=== PATIENT | male | born 1950 | race Caucasian/White ===

== ENCOUNTER 2016-09-04 08:05 | Observation (INO) ==
--- NOTE | 2016-09-04 08:35 | EKG Report ---
Stationary ECG Study [facility] Test Date: 09/04/2016 8:36:45 AM Pat Name: AMADA BROCK Department: Room: Gender: M Diamond Sander: CORAL : 1950 Requested by: Odell Brunner Order Number: [id number] Regina MD: ENRIQUE MONTEZ Intervals [place]is Rate: 60 P: 59 NE: 151 QRS: 26 QRSD: 88 T: 60 QT: 392 QTc: 393 Interpretive Statements SINUS RHYTHM LOW QRS VOLTAGE IN PRECORDIAL LEADS Electronically Signed On 09-06-16 14:10:16 CDT by ENRIQUE MONTEZ [email or web address]
[2016-09-04] MEDS: SODIUM CHLORIDE 0.9% 1,000 ML IV SCH (08:39)
[2016-09-04 08:46] LABS: Basophils # 0.1 10*3/uL (0.0-0.2); Basophils % 0.4 % (0.0-0.8); Eosinophils # 0.3 10*3/uL (0.0-0.87); Eosinophils % 2.3 % (0.00-10.9); Hematocrit 37.4 VOL% (42.0-52.0); Hemoglobin 13.1 GM/DL (14.0-18.0); Immature Granulocytes % 0.2 %; Immature Granulocytes Absolute 0.03 #; Lymphocytes # 7.3 10*3/uL (1.4-4.0); Lymphocytes % 59.1 % (21.2-54.2); Mean Corpuscular Hemoglobin 32 PG (27-34); Mean Corpuscular Volume 91.4 FL (87-102); Mean Platelet Volume 9.8 FL (9.6-12.0); Monocytes # 1.3 10*3/uL (0.11-0.8); Monocytes % 10.6 % (1.7-12.7); Neutrophils # 3.4 10*3/uL (1.4-7.4); Neutrophils % 27.4 % (38.7-73.9); Platelet Count 132 T/CUMM (130-400); Red Blood Count 4.09 MC/CUMM (3.8-5.5); Red Cell Distribution Width 13.1 % (9.3-17.3); White Blood Count 12.3 T/CUMM (4-12)
[2016-09-04 08:56] LABS: INR 1.1; PT Patient Result 11.2 SECS; Partial Thromboplastin Time 31.3 SECS (0-40)
[2016-09-04 09:11] LABS: Eosinophils 1 % (0-10); Hypochromasia 1+; Lymphocytes 56 % (20-55); Ovalocytes Slight; Platelet Estimate Normal; Segmented Neutrophils 38 % (50-85); Total Cells Counted 100
[2016-09-04] MEDS ORDERED: ceFAZolin 1,000 MG VIAL ONE (09:13)
[2016-09-04] MEDS ORDERED: SODIUM CHLORIDE 0.9% 100 ML IV ONE (09:14)
--- NOTE | 2016-09-04 11:17 | History and Physical Update ---
History and Physical Update - Physical Exam Mental Status: alert and oriented Heart: regular rate and rhythm Lung: clear to auscultation Abdomen: within normal limits Vitals: within normal limits
--- NOTE | 2016-09-04 11:20 | Operative Note ---
Date of procedure: 09/04/16 Pre-op diagnosis: Dysphagia and malnutrition Procedure: EGD with biopsy and percutaneous endoscopic gastrostomy tube placement and esophageal dilatation. 66-year-old gentleman with recurrent nasopharyngeal carcinoma with difficulty maintaining adequate nutrition and dysphagia now for EGD for possible PEG tube placement and dilatation. Informed consent was obtained for patient He was sedated with MAC anesthesia per anesthesia protocol. Patient was placed in left lateral decubitus position the Olympus flexible video upper endoscope was inserted oral cavity under direct vision the esophagus intubated. No posterior pharyngeal abnormality was observed. Findings: Esophagus-normal esophageal mucosa throughout no significant stricture or mass lesion was identified. Stomach-normal insufflation there is acute antral erosive gastritis biopsies were taken for possible H. pylori. Remaining stomach is normal to direct retroflexed views of the body fundus and cardia the stomach. Pylorus-normal Duodenum-normal for the bulb and duodenum to the third portion of the duodenum. Scope was drawn back into the stomach and appropriate on the anterior abdominal wall was transilluminated after the patient was rotated to the supine position. Area was prepped and draped in sterile fashion Nestabs 1/2 cc lidocaine. Finder needle was endoscopically visualized. This was removed a small scalpel incision was made in the skin through which an 18-gauge Angiocath was inserted stomach endoscopically verified. Guidewire was passed grasped with polypectomy snare brought out via the mouth and using standard pull traction technique a 20 [place] Gagan Ponsky style PEG tube was pulled in position without difficulty. Subsequently a 54 E[place]an bougie was passed without resistance or bleeding. The patient was discharged recovery in good condition. Postop diagnosis: 1. Dysphagia malnutrition likely secondary to esophageal dysmotility related to his recurrent nasopharyngeal tumor. Will admit overnight for observation following his PEG tube placement. Will assess effectiveness of dilatation is can be repeated as needed 2. Erosive ftivlwvjk-hawhyc-wr biopsies positive for H. pylori will treat. Initiate PPI treatment. Avoid nonsteroidals. Anesthesia: MAC Surgeon / Physician: Odell Mondragon Specimens: other (Erosive gastritis) Condition: stable Disposition: post procedure unit Results - Labs CBC & BMP: 09/04/16 08:35 Discharge Plan - Discharge Medications No Action Temazepam [Restoril] 30 mg PO BEDTIME Ondansetron Tab [Zofran Tab] 4 mg PO Q8HR PRN PRN Reason: Nausea Amitriptyline [Elavil] 50 mg PO BEDTIME Tamsulosin [Flomax] 0.4 mg PO DAILY Carisoprodol [Soma] 350 mg PO BID Hydrocodone/Acetaminophen [Lorcet Hd 10-325 mg Tablet] 1 each PO Q3-4H PRN PRN Reason: Pain - Follow Up or Referral - Forms/Instructions
[2016-09-04] MEDS ORDERED: ONDANSETRON 4 MG/2 ML VIAL IV PRN (11:21)
[2016-09-04] MEDS ORDERED: MAGNESIUM HYDROXIDE SUSP 30 ML UDCUP PO PRN (11:21)
--- NOTE | 2016-09-04 11:25 | Anesthesia Post-Op ---
Anesthesia Post OP - Post Ansesthetic Evaluation Patient seen in post op: Yes Resp: within normal limits CV: within normal limits Mental: within normal limits Temp: within normal limits Tavc-Ba-Udqvciumw: within normal limits Nausea and Vomiting: within normal limits Pain: within normal limits
--- NOTE | 2016-09-04 11:28 | Gastrointestinal H&P ---
Assessment and Plan (1) Malnutrition Status: Acute Assessment and plan: Malnutrition secondary to esophageal dysmotility from recurrent nasopharyngeal carcinoma. Now for admission following PEG tube placement for institution of PEG feedings monitoring for post PEG tube complications. Current Visit: Yes (2) Erosive gastritis Status: Acute Assessment and plan: Erosive gastritis will start PPI treatment. He complains of good bit of nausea which is likely secondary to this biopsy was taken for the possibility of H pylori no history of nonsteroidals is reported. Current Visit: Yes (3) Nasopharyngeal carcinoma Status: Acute Assessment and plan: Keep out placement plan plans for chemotherapy and possible radiation Current Visit: Yes History of Present Illness Chief complaint: Dysphagia and malnutrition History of present illness: Mr. Mckeon is a 66 year old male History of nasopharyngeal carcinoma with recurrence complicated by tongue weakness and hoarseness resulting in inability to transfer oropharyngeal contents into the esophagus resulting in dysphagia and impending malnutrition. He has undergone EGD with PEG tube placement today and is being monitored overnight for complications relative to PEG tube placement and institution of PEG tube training and feedings. Plans for follow-up chemotherapy are scheduled and the possibility of recurrent radiation is being considered. Home Medications Medication Instructions Recorded Confirmed Type Carisoprodol [Soma] 350 mg PO BID 09/03/16 09/04/16 History Tamsulosin [Flomax] 0.4 mg PO DAILY 09/03/16 09/03/16 History Temazepam [Restoril] 30 mg PO BEDTIME 09/03/16 09/03/16 History Amitriptyline [Elavil] 50 mg PO BEDTIME 09/04/16 09/04/16 History Hydrocodone/Acetaminophen [Lorcet 1 each PO Q3-4H PRN 09/04/16 09/04/16 History Hd 10-325 mg Tablet] Ondansetron Tab [Zofran Tab] 4 mg PO Q8HR PRN 09/04/16 09/04/16 History Allergies Allergy/AdvReac Type Severity Reaction Status Date / Time Penicillins Allergy EYE Verified 09/04/16 10:42 SWELLING Medical,Surgical,& Family Hx - Medical History Psychological: History of: Depression Neurology: No history of: Seizures HEENT: History of: HEENT Problems (Malignant neoplasm nasopharynx) Gastrointestinal: History of: Polyps Musculoskeletal: History of: Back/Neck Problems (Chronic back pain) Hematology: History of: Hematologic Cancer (Chronic lymphocytic leukemia) Reproductive: No histroy: Reproductive Cancer Other: History of: Cancer (Chronic lymphocytic leukemia; malignant neoplasm nasopharynx) - Surgical History Cardiac Surgeries: Sugical HX of: Cardiac Catheterization (2010 -NEGATIVE - Dr. Rowe) Patient Denies: Carotid Endarterectomy HEENT Surgeries: Surgical HX of: Eye Surgery (BILATERAL cataract removal) Patient denies: Carotid Endarterectomy, Tonsilectomy & Adenoidectomy Abdominal Surgeries: Surgical HX of: Abdominal Surgery, Cholecystectomy, Colonoscopy Patient denies: Appendectomy, Gastric Bypass Surgery, EGD, Hernia Repair Reproductive Surgeries: Patient denies;: Genitourinary Surgery, Vasectomy Orthopedic Surgeries: Surgical HX of;: Orthopedic Surgery (RIGHT knee scope; Back fusion) - Family History Family History: Reports;: Family Cancer (Sister (lung)), Family Heart Disease ( Mother), Family Hypertension (Mother, Son) Denies;: Family Anesthesia Reaction, Family Diabetes, Family Hematology, Family Psychiatric Problems, Family Stroke - Social History Smoking Status: Former smoker Frequency of Alcohol Use: None Type of Drug Use: None - Constitutional Constitutional: Present: anorexia, fatigue. Absent: chills, fever(s) - EENT Eyes: Absent: diplopia, loss of vision Ears: Absent: decreased hearing, tinnitus Nose, mouth and throat: Present: dysphagia. Absent: epistaxis, headache(s) - Cardiovascular Cardiovascular: Absent: chest pain at rest, chest pain with activity, edema - Respiratory Respiratory: Absent: dyspnea, hemoptysis, dyspnea on exertion - Gastrointestinal Gastrointestinal: Present: nausea. Absent: abdominal pain, bloating, vomiting, jaundice - Genitourinary Genitourinary: Absent: difficulty urinating, hematuria - Musculoskeletal Musculoskeletal: Absent: back pain - Neurological Neurological: Present: abnormal speech. Absent: behavioral changes, confusion, convulsions - Psychiatric Psychiatric: Present: depression. Absent: confusion - Endocrine Endocrine: Present: fatigue. Absent: polydipsia, polyphagia - Hematologic/Lymphatic Hematologic/Lymphatic: Absent: easy bleeding, easy bruising, lymphadenopathy Exam - Constitutional Vitals: Period Temp Pulse Resp BP Sys/Costa Pulse Ox Last 24 Hr 97.1 F 58 16 119/67 97 General appearance: no acute distress, under weight - Head Head exam: Present: normal inspection, normocephalic, atraumatic - Eye Eye exam: Present: EOMI. Absent: conjunctival injection, scleral icterus Pupils: Present: EVE. Absent: dilated - ENT ENT exam: Present: normal oropharynx - Neck Neck exam: Absent: lymphadenopathy, thyromegaly - Respiratory Respiratory exam: Present: clear to auscultation bilaterally. Absent: accessory muscle use, rales - Cardiovascular Cardiovascular exam: Present: regular rate and rhythm. Absent: systolic murmur - GI/Abdominal GI/Abdominal exam: Present: normal bowel sounds, soft. Absent: ascites, organomegaly, tenderness, rebound - Extremities Exam Extremities exam: Present: normal inspection. Absent: edema - Neurological Exam Neurological exam: Present: alert, oriented X3 - Psychiatric Psychiatric exam: Present: normal affect, flat affect - Skin Skin exam: Present: warm, dry Results - Labs CBC & BMP: 09/04/16 08:35 Quality Measures - VTE Contraindication to Pharmacological VTE Prophylaxis: High Risk of Bleeding
[2016-09-04] MEDS ORDERED: PANTOPRAZOLE 40 MG TABLET PO SCH (11:30)
[2016-09-04] MEDS: DEXTROSE 5% NACL 0.45% 1,000 ML IV SCH (14:09)
[2016-09-04] MEDS ORDERED: LIDOCAINE 100 MG/5 ML SYRINGE ONE (16:44)
[2016-09-04] MEDS ORDERED: PROPOFOL 200 MG/20 ML VIAL IV ONE (16:44)
--- NOTE | 2016-09-04 17:02 | General Surgery Consult Note ---
Assessment and Plan - Time spent with patient Time spent with patient: Less than 30 minutes (1) Nasopharyngeal carcinoma Status: Acute Assessment and plan: Impression: 1. Recurrent nasopharyngeal cancer needing venous access for chemotherapy 2. Mild to moderate malnutrition. Plan: Placement of Mediport left cephalic or subclavian vein Current Visit: Yes History of Present Illness Chief complaint: Nasopharyngeal cancer needing venous access for chemotherapy History of present illness: Mr. Mckeon is a 66 year old male white with nasopharyngeal cancer who has had a recurrence and needs additional chemotherapy. He has had a Mediport placed on the right so I think will Plan to put this on the left and or the hopes of being able get in the cephalic vein and avoid a subclavian stick and its complications. I have discussed the surgery and procedure with the patient and family they understand the risks and complications and agreeable to go ahead at this time. Home Medications Medication Instructions Recorded Confirmed Type Carisoprodol [Soma] 350 mg PO BID 09/03/16 09/04/16 History Tamsulosin [Flomax] 0.4 mg PO DAILY 09/03/16 09/04/16 History Temazepam [Restoril] 30 mg PO BEDTIME 09/03/16 09/04/16 History Amitriptyline [Elavil] 50 mg PO BEDTIME 09/04/16 09/04/16 History Hydrocodone/Acetaminophen [Lorcet 1 each PO Q3-4H PRN 09/04/16 09/04/16 History Hd 10-325 mg Tablet] Ondansetron Tab [Zofran Tab] 4 mg PO Q8HR PRN 09/04/16 09/04/16 History Allergies Allergy/AdvReac Type Severity Reaction Status Date / Time Penicillins Allergy EYE Verified 09/04/16 10:42 SWELLING Medical,Surgical,& Family Hx - Medical History Psychological: History of: Depression Neurology: No history of: Seizures HEENT: History of: HEENT Problems (Malignant neoplasm nasopharynx) Gastrointestinal: History of: Polyps Musculoskeletal: History of: Back/Neck Problems (Chronic back pain) Hematology: History of: Hematologic Cancer (Chronic lymphocytic leukemia) Reproductive: No histroy: Reproductive Cancer Other: History of: Cancer (Chronic lymphocytic leukemia; malignant neoplasm nasopharynx) - Surgical History Cardiac Surgeries: Sugical HX of: Cardiac Catheterization (2010 -NEGATIVE - Dr. Rowe) Patient Denies: Carotid Endarterectomy HEENT Surgeries: Surgical HX of: Eye Surgery (BILATERAL cataract removal) Patient denies: Carotid Endarterectomy, Tonsilectomy & Adenoidectomy Abdominal Surgeries: Surgical HX of: Abdominal Surgery, Cholecystectomy, Colonoscopy Patient denies: Appendectomy, Gastric Bypass Surgery, EGD, Hernia Repair Reproductive Surgeries: Patient denies;: Genitourinary Surgery, Vasectomy Orthopedic Surgeries: Surgical HX of;: Orthopedic Surgery (RIGHT knee scope; Back fusion) - Family History Family History: Reports;: Family Cancer (Sister (lung)), Family Heart Disease ( Mother), Family Hypertension (Mother, Son) Denies;: Family Anesthesia Reaction, Family Diabetes, Family Hematology, Family Psychiatric Problems, Family Stroke - Social History Smoking Status: Former smoker Frequency of Alcohol Use: None Type of Drug Use: None 12 point system: reviewed and no additional remarkable complaints except as stated Exam - Constitutional Vitals: Period Temp Pulse Resp BP Sys/Costa Pulse Ox Last 24 Hr 97.1 F-98.5 F 53-65 16-20 103-152/56-73 94-100 General appearance: mild distress - Head Head exam: Present: normal inspection - ENT ENT exam: Present: normal exam - Neck Neck exam: Present: normal inspection - Respiratory Respiratory exam: Present: rales, other (Chest wall both sides is clean with no sign of any lesions or cyst tissue breakdown) - Cardiovascular Cardiovascular exam: Present: RRR - GI/Abdominal GI/Abdominal exam: Present: hypoactive bowel sounds, soft - Extremities Exam Extremities exam: Present: normal inspection - Back Exam Back exam: Present: normal inspection - Neurological Exam Neurological exam: Present: alert, oriented X3, CN II-XII intact - Skin Skin exam: Present: normal color, warm, dry Quality Measures - VTE Contraindication to Pharmacological VTE Prophylaxis: High Risk of Bleeding Results - Labs CBC & BMP: 09/04/16 08:35 Lab Results: I have reviewed the past 24 hour labs
[2016-09-05] MEDS: DEXTROSE 5% NACL 0.45% 1,000 ML IV SCH (04:41)
[2016-09-05] MEDS ORDERED: CLINDAMYCIN INJ 900 MG in PREMIX 1 EACH IV ONE (06:00)
[2016-09-05 06:09] LABS: INR 1.1; PT Patient Result 11.8 SECS; Partial Thromboplastin Time 32.8 SECS (0-40)
[2016-09-05 06:13] LABS: Calcium 7.7 MG/DL (8.5-10.1); Osmolality,Calculated 276.4 MOS/KG (273-304); Phosphorous 3.6 MG/DL (2.5-4.9); Potassium 3.6 MMOL/L (3.5-5.1); Prealbumin 22.8 MG/DL (20-40)
--- NOTE | 2016-09-05 09:18 | Discharge Summary ---
<Nan Mays - Last Filed: 09/05/16 10:15> Hospital Course - Hospital Course Hospital Course: Mr. Mckeon was admitted on yesterday from the GI Lab following PEG tube placement. He has a history of nasopharyngeal carcinoma which has recurred and is complicated his ability to swallow. He elected to proceed with PEG tube placement on yesterday and did well without complication. He has no signs of bleeding, redness, or drainage at the site and abdominal binder is intact. Dietary has consulted with patient and made recommendations regarding tube feedings. He has minimal postprocedure pain today. Dr. Gomez has also consulted with him and is going to proceed with MediPort placement today prior to discharge. Patient is to began chemotherapy in the near future with also the possibility of radiation. Discussed PEG tube care with patient and his who is at bedside. He is to have PEG tube feedings initiated today after his Mediport placement and instruction to be given by nursing staff prior to discharge. Patient and are also considering short-term home health upon discharge. - Time spent with patient Time with patient DS: Greater than 30 minutes Diagnosis - Discharge Diagnosis (1) Malnutrition Status: Acute (2) Erosive gastritis Status: Acute (3) Nasopharyngeal carcinoma Status: Acute Discharge Plan - Discharge Data Disposition: Disch To Home/Self Care Condition at Discharge: Stable Discharge Diet: advance to your usual diet, other (Tube feeding diet) Activity: resume usual activities as tolerated Hygiene: no restrictions Weight Bearing at Discharge: full weight bearing Driving: no restrictions Contact your physician if you experience:: fever over 101, Nausea/Vomiting, pain uncontrolled by pain medications - Discharge Medications No Action Temazepam [Restoril] 30 mg PO BEDTIME Ondansetron Tab [Zofran Tab] 4 mg PO Q8HR PRN PRN Reason: Nausea Amitriptyline [Elavil] 50 mg PO BEDTIME Tamsulosin [Flomax] 0.4 mg PO DAILY Carisoprodol [Soma] 350 mg PO BID Hydrocodone/Acetaminophen [Lorcet Hd 10-325 mg Tablet] 1 each PO Q3-4H PRN PRN Reason: Pain - Follow Up or Referral - Forms/Instructions Exam - Constitutional Vitals: Period Temp Pulse Resp BP Sys/Costa Pulse Ox Last 24 Hr 97.3 F-99.1 F 53-67 16-20 102-152/51-82 94-100 General appearance: normal weight, no acute distress - Head Head exam: Present: normal inspection, normocephalic - Eye Eye exam: Present: other (Lids and conjunctivae are unremarkable). Absent: scleral icterus - ENT ENT exam: Present: normal exam, normal oropharynx - Neck Neck exam: Present: normal inspection - Respiratory Respiratory exam: Present: clear to auscultation bilaterally. Absent: rales, rhonchi, wheezes - Cardiovascular Cardiovascular exam: Present: regular rate and rhythm. Absent: diastolic murmur , JVD, systolic murmur - GI/Abdominal GI/Abdominal exam: Present: normal bowel sounds, soft. Absent: ascites, distended, mass, organomegaly, tenderness - Extremities Exam Extremities exam: Present: normal inspection, full ROM - Back Exam Back exam: Present: normal inspection - Neurological Exam Neurological exam: Present: alert, oriented X3 - Psychiatric Psychiatric exam: Present: normal affect, normal mood - Skin Skin exam: Present: normal color, warm, dry Discharge Results Procedures and tests throughout hospitalization: Pending Orders 09/05/16 IR fluoro guide cv cath Routine Labs on day of discharge: Labs from last 24 hours 09/05/16 09/05/16 05:22 05:22 INR 1.1 PT Patient/Control Mix 11.8 Circ Anticoag PTT 32.8 Sodium 140 Potassium 3.6 Chloride 104 Carbon Dioxide 32 Anion Gap 7.6 BUN 6 L Creatinine 0.90 GFR Calculation 97 BUN/Creatinine Ratio 6.00 Glucose 90 Calculated Osmolality 276.4 Calcium 7.7 L Phosphorus 3.6 Magnesium 2.0 Prealbumin 22.8 DS: Provider Date of admission: 09/04/16 11:21 Primary care physician: Jarrett Murillo, Attending physician on admission: Odell Mondragon MD Consults: 09/04/16 11:24 Consult to Dietitian [CONS] Routine Reason for Dietitian: TF-Initiate/Manage Consult Comment: Tube feeding recommendations 09/04/16 14:31 Consult to Physician [CONS] Routine Comment: mediport placement Consulting Provider: Laz Gomez Discharging clinician: Juan Manuel Schaefer Expected date of discharge: 09/05/16 <Odell Mondragon - Last Filed: 09/05/16 10:30> Diagnosis - Discharge Diagnosis (1) Malnutrition Status: Acute (2) Erosive gastritis Status: Acute (3) Nasopharyngeal carcinoma Status: Acute
[2016-09-05] MEDS: SODIUM CHLORIDE 0.9% 1,000 ML IV SCH ×2 (09:31→14:51)
[2016-09-05] MEDS ORDERED: DIAZEPAM 5 MG TABLET PO ONE (09:39)
[2016-09-05] MEDS ORDERED: ceFAZolin 1,000 MG VIAL ONE (11:24)
[2016-09-05] MEDS ORDERED: HEPARIN 5,000 UNIT/1 ML VIAL ONE (11:24)
[2016-09-05] MEDS ORDERED: BUPIVACAINE 0.25% /EPI 10 ML VIAL ONE (11:24)
--- NOTE | 2016-09-05 11:38 | Pathology Report from [facility] ---
[facility] ACCESSION # : [id number] PATIENT NAME : Amada Brock ORDERING DR : BEVERLEY FAIR MD CLINICAL HX: Nasal pharyngeal disease POST-OP DX: Gastritis SPECIMEN INFO: Gastric biopsy GROSS DESCRIPTION: The specimen is received in formalin labeled with the patients name and consists of two pieces of pink-white tissue measuring in aggregate 0.6 x 0.2 cm. Submitted in one cassette. DIAGNOSIS FOR AMADA BROCK: GASTRIC BIOPSY: Chronic superficial gastritis. H. pylori not seen on H&E or special stain with appropriate control. COLLECTED DATE: 09/04/2016 [facility] REPORT DATE: 09/05/2016 ELECTRONICALLY SIGNED BY: Lopez Bingham M.D. 09/05/2016 - 9:44:34 [facility]
[2016-09-05] MEDS ORDERED: PROPOFOL 200 MG/20 ML VIAL IV ONE (12:35)
[2016-09-05] MEDS ORDERED: LIDOCAINE 1% 5 ML VIAL ONE (12:35)
[2016-09-05] MEDS ORDERED: PHENYLEPHRINE 1 MG/10 ML SYRINGE IV ONE (12:35)
[2016-09-05] MEDS ORDERED: ONDANSETRON 4 MG/2 ML VIAL ONE (12:35)
[2016-09-05] MEDS ORDERED: CLINDAMYCIN 300 MG/2 ML VIAL ONE (12:57)
[2016-09-05] MEDS ORDERED: CLINDAMYCIN 600 MG/4 ML VIAL ONE (12:57)
[2016-09-05] MEDS ORDERED: TISSUE ADHESIVE 1 EACH APPLICATOR TOP ONE (13:17)
[2016-09-05] MEDS ORDERED: HYDROmorphone 2 MG/1 ML VIAL IV PRN (13:38)
[2016-09-05] MEDS ORDERED: ACETAMINOPHEN 325 MG TABLET PO PRN (13:38)
--- NOTE | 2016-09-05 13:52 | Operative Note ---
Date of procedure: 09/05/16 Pre-op diagnosis: Nasopharyngeal cancer needs Mediport Post-op diagnosis: same Procedure: Operative note: Preoperative diagnosis: Nasopharyngeal carcinoma needs Mediport for chemotherapy Postoperative diagnosis: Same Procedure: Insertion of PowerPort left cephalic vein. Surgeon Dr. Gomez Transfer Iron Operator Padmini Price, [facility] Anesthesia is managed anesthetic care with local Brief history: 66-year-old white male with a recurrent nasopharyngeal cancer who has a gastrostomy tube in place and needs venous access for chemotherapy now. He had had one several years ago and the right side so would like to go to the left see if we get one in there. Procedure With patient in supine position prepped and draped in a sterile fashion timeout and antibiotics completed approaches area of the left upper chest left infraclavicular area at the deltopectoral groove region of the left upper chest and shoulder. Infiltrated with a local anesthetic in here and where we then replaced the pocket. I then took a knife made incision through the skin subtenons tissue and then used electrocautery to dissect down to the pectoralis major muscle. Had to dissected superior to the muscle to get into the deltopectoral groove and with careful dissection identified a very large vein that was able to isolate approximately with a 2-0 Vicryl tie. The distal part was a little more difficult to isolate because of several branches in this area but I finally got a 2-0 Vicryl tie on the distal part of the vein and put clips on the branches. Once that was done we had him in Trendelenburg and I made a venotomy incision. I then inserted the catheter into the vein and it flowed easily into the superior vena cava right atrial area. We use a C arm to confirm position and location and then I tied down that distal Vicryl suture to secure it in there. We then aspirated and irrigated through the catheter and it aspirated and irrigated easily. With that looking good they are placed another time about the catheter in the vein to secure it and then put clips on the opening of the veins to keep it close down. We went that was done then I began to create a pocket inferior to that on top of the pectoralis major muscle using sharp and blunt dissection until we had a good pocket created. Once I had that completed then I was able to cut off the excess of the catheter and put it onto the reservoir and put the locking device in position. I then aspirated and irrigated through the reservoir and it aspirated and irrigated easily. I then sutured the reservoir into the pocket with distally on either side keep it from rotating. 2-0 Vicryl sutures I did take another suture on to the catheter underneath the muscle layer just because it looked like a little bit attention at the vein site I would make sure he did not pool layer. Once we had that we check it again with C arm which may look good we then washed out the pocket with a Cleocin antibiotic solution. We closed subtenons tissue with a running 30 Vicryl Suture Never Close the skin running 4-0 Monocryl Dermabond was applied along with a light dressing patient taken recovery room. Estimated blood loss 10 cc Sponge counts correct 2 Drains none Complications none Condition stable satisfactory Anesthesia: MAC, local (0.25% Marcaine with epinephrine mixed [id number] 1% Xylocaine plain) Surgeon / Physician: Laz Gomez Transfer Iron Operator: Padmini Price Estimated blood loss: other (10 cc) Specimens: none sent Condition: stable Disposition: floor Results - Labs CBC & BMP: 09/04/16 08:35 09/05/16 05:22 Discharge Plan - Discharge Data Disposition: Disch To Home/Self Care - Discharge Medications No Action Temazepam [Restoril] 30 mg PO BEDTIME Ondansetron Tab [Zofran Tab] 4 mg PO Q8HR PRN PRN Reason: Nausea Amitriptyline [Elavil] 50 mg PO BEDTIME Tamsulosin [Flomax] 0.4 mg PO DAILY Carisoprodol [Soma] 350 mg PO BID Hydrocodone/Acetaminophen [Lorcet Hd 10-325 mg Tablet] 1 each PO Q3-4H PRN PRN Reason: Pain - Follow Up or Referral - Forms/Instructions
--- NOTE | 2016-09-05 13:59 | Anesthesia Post-Op ---
Anesthesia Post OP - Post Ansesthetic Evaluation Patient seen in post op: Yes Resp: within normal limits CV: within normal limits Mental: within normal limits Temp: within normal limits Ddxo-Xi-Ykwbrbmne: within normal limits Nausea and Vomiting: within normal limits Pain: within normal limits
[2016-09-05] MEDS ORDERED: fentaNYL 100 MCG/2 ML VIAL ONE (14:03)
[2016-09-05] MEDS ORDERED: MIDAZOLAM 2 MG/2 ML VIAL ONE ×2 (14:03→14:04)
--- NOTE | 2016-09-05 14:25 | XRay Report ---
History: Mediport catheter placement Date: 09/05/2016 Study: Chest x-ray AP portable Comparison exam: September 26, 2013 A left upper extremity Mediport-type catheter is well-positioned with its tip over the atriocaval junction region. There is no pneumothorax. There is minor platelike subsegmental atelectasis in the left lung base. There is no sol pneumonia or gross pleural effusion. The cardiac silhouette is upper normal. There is no mediastinal mass. The pulmonary vasculature is not engorged. The osseous structures are unchanged. Impression: No evidence of a pneumothorax following Mediport catheter placement. The Mediport catheter tip appears well-positioned. PROCEDURE INTERPRETED AT [facility] DEPARTMENT OF RADIOLOGY Final Report Signed by: Dr. Catarina Santos
[2016-09-05 18:47] VITALS: BP 162/86
[2016-09-05] MEDS ORDERED: CLINDAMYCIN INJ 900 MG in PREMIX 1 EACH IV SCH (20:00)
== END 2016-09-05 17:35 | disposition home or self-care (01) ==
LOC: N.GILAB 08:05 → N.4E 08:05
PROVIDERS: ADMIT Internal Medicine Gastroenterology; ATTEND Internal Medicine Gastroenterology
PROC: EGDWPEG (ICD-10-PCS; 2016-09-04 08:35)